=== PATIENT | female | born 1950 | race Caucasian/White ===

== ENCOUNTER 2023-10-27 16:54 | Inpatient (IN) ==
[2023-10-27] MEDS ORDERED: cefTRIAXone 1 gm/50 mL D5W 1 GM/50 ML BAG IV ONE (17:03)
[2023-10-27] MEDS ORDERED: NS 0.9% IV ONE (17:05)
[2023-10-27 17:37] LABS: ABS Lymphocytes 0.8 10^3/uL (1.0-4.8); ABS Monocytes 0.9 10^3/uL (0.0-0.9); ABS Neutrophils 11.1 10^3/uL (1.5-7.6); ABS Nucleated RBC 0.02 10^3/ul; Eosinophil % 0.4 %; Hematocrit 36.6 % (35-45); Hemoglobin 12.3 g/dL (11.5-14.3); Lymphocyte % 6.2 %; Mean Corpuscular Hgb Conc 33.6 g/dL (31-36); Mean Corpuscular Volume 86.3 fL (80-97); Mean Platelet Volume 7.5 fL (7.5-11.2); Nucleated Red Blood Cells % 0.1 %/100WBC (0.0-0.8); Platelet Count 180 10^3/uL (150-450); Red Blood Count 4.24 10^6/uL (3.63-4.92); Red Cell Distribution Width 14.5 % (12-17); White Blood Count 12.9 10^3/uL (3.8-11.8)
[2023-10-27 17:56] LABS: Albumin 3.7 g/dL (3.2-5.2); Albumin/Globulin Ratio 1.1 (1-3); C Reactive Protein 253.73 mg/L (<8.01); Calcium 8.4 mg/dL (8.6-10.3); Creatinine, Serum 1.16 mg/dL (0.51-0.95); Globulin 3.5 g/dL (2-4); Potassium 3.3 mmol/L (3.5-5.0); Total Bilirubin 1.4 mg/dL (0.2-1.0); Total Protein 7.2 g/dL (6.4-8.9); eGFR CKD-EPI 49.8 (>60)
[2023-10-27] MEDS ORDERED: Piperacillin/Tazobac 3.375 BAG 3.375 GM/100 ML BAG IV ONE (18:53)
[2023-10-27] MEDS ORDERED: Lactated Ringers 1000 ml BAG 1,000 ML IV SCH (20:46)
[2023-10-27] MEDS ORDERED: Senna TAB 8.6 mg TAB PO PRN (20:48)
[2023-10-27] MEDS ORDERED: Zosyn per Pharmacy NOTE FOLLOW UP SCH (21:00)
[2023-10-27] MEDS ORDERED: Potassium Chlor 20 meq TAB.ER PO ONE (21:05)
[2023-10-27 21:37] LABS: Magnesium 1.8 mg/dL (1.9-2.7)
[2023-10-27] MEDS ORDERED: Magnesium Sulfate IV 1GM/100ML 1 GM/100 ML BAG IV ONE (21:38)
[2023-10-27] MEDS ORDERED: Dextrose 50% Syringe 50 ml 25 GM/50 ML SYRINGE IV PUSH PRN (23:41)
[2023-10-28] MEDS ORDERED: ZOSYN 3.375 GM Q8H per EXTENDED INFUSION IV SCH
[2023-10-28] MEDS: Enoxaparin 40 MG/0.4 ML SYR SUBCUT SCH ×2 (00:23→20:52)
[2023-10-28] MEDS: HYDROcodone/ACETAMIN 5/325 mg TAB PO PRN ×3 (01:29→20:54)
[2023-10-28] MEDS: ZOSYN 3.375 GM Q8H per EXTENDED INFUSION IV SCH ×2 (01:40→08:12)
[2023-10-28 07:10] LABS: Anion Gap 7 mmol/L (2-16); Blood Urea Nitrogen 16 mg/dL (6-24); C Reactive Protein 263.05 mg/L (<8.01); CO2 Carbon Dioxide 21 mmol/L (22-32); Calcium 7.9 mg/dL (8.6-10.3); Chloride 99 mmol/L (101-111); Creatinine, Serum 0.96 mg/dL (0.51-0.95); Glucose 157 mg/dL (70-100); Magnesium 2.1 mg/dL (1.9-2.7); Sodium 127 mmol/L (135-145); eGFR CKD-EPI 62.5 (>60)
[2023-10-28] MEDS: Amphetamine MIXED SALT 10mgTAB PO SCH ×2 (08:18→14:07)
[2023-10-28] MEDS: Fluticasone NASAL SPRAY 50MCG 16 gm SPRAY BTL INTRANASAL SCH (11:26)
[2023-10-28 18:27] LABS: Urine Appearance Cloudy; Urine Bilirubin Negative (Negative); Urine Blood 1+ (Negative); Urine Color Yellow; Urine Glucose Negative (Negative); Urine Ketones Negative (Negative); Urine Nitrite Negative (Negative); Urine Protein Negative (Negative); Urine Specific Gravity 1.009 (1.002-1.030); Urine Urobilinogen Positive (Negative)
[2023-10-28 18:58] LABS: Urine Bacteria 1+ (Absent); Urine Red Blood Cell 2+(6-10/hpf) (Absent); Urine Squamous Epithelial Cell Present (Absent); Urine White Blood Cell 2+(11-20/hpf) (Absent)
[2023-10-28] MEDS: cefTRIAXone 2 gm/50 mL D5W 2 GM/50 ML BAG IV SCH (20:48)
[2023-10-29] MEDS: HYDROcodone/ACETAMIN 5/325 mg TAB PO PRN ×3 (00:34→21:00)
[2023-10-29 07:03] LABS: ABS Eosinophils 0.2 10^3/uL (0.0-0.5); ABS Lymphocytes 0.8 10^3/uL (1.0-4.8); ABS Monocytes 0.5 10^3/uL (0.0-0.9); ABS Nucleated RBC 0.02 10^3/ul; Eosinophil % 3.8 %; Hematocrit 34.2 % (35-45); Hemoglobin 11.7 g/dL (11.5-14.3); Lymphocyte % 14.8 %; Mean Corpuscular Hemoglobin 31.2 pg (27-33); Mean Corpuscular Hgb Conc 34.2 g/dL (31-36); Mean Corpuscular Volume 91.1 fL (80-97); Mean Platelet Volume 7.6 fL (7.5-11.2); Nucleated Red Blood Cells % 0.3 %/100WBC (0.0-0.8); Platelet Count 183 10^3/uL (150-450); Red Blood Count 3.75 10^6/uL (3.63-4.92); Red Cell Distribution Width 14.7 % (12-17); White Blood Count 5.5 10^3/uL (3.8-11.8)
[2023-10-29 07:05] LABS: Calcium 8.7 mg/dL (8.6-10.3); Creatinine, Serum 0.9 mg/dL (0.51-0.95); Potassium 3.7 mmol/L (3.5-5.0); eGFR CKD-EPI 67.5 (>60)
[2023-10-29] MEDS: Amphetamine MIXED SALT 10mgTAB PO SCH ×2 (09:12→13:44)
[2023-10-29] MEDS: Fluticasone NASAL SPRAY 50MCG 16 gm SPRAY BTL INTRANASAL SCH (09:13)
[2023-10-29] MEDS: cefTRIAXone 2 gm/50 mL D5W 2 GM/50 ML BAG IV SCH (21:04)
[2023-10-29] MEDS: Enoxaparin 40 MG/0.4 ML SYR SUBCUT SCH (21:08)
[2023-10-30] MEDS: HYDROcodone/ACETAMIN 5/325 mg TAB PO PRN ×2 (00:48→05:22)
[2023-10-30 07:00] LABS: ABS Eosinophils 0.2 10^3/uL (0.0-0.5); ABS Monocytes 0.5 10^3/uL (0.0-0.9); ABS Neutrophils 3.4 10^3/uL (1.5-7.6); ABS Nucleated RBC 0.01 10^3/ul; Eosinophil % 3.7 %; Hematocrit 34.1 % (35-45); Hemoglobin 11.6 g/dL (11.5-14.3); Lymphocyte % 18.8 %; Mean Corpuscular Hemoglobin 29.1 pg (27-33); Mean Corpuscular Hgb Conc 33.9 g/dL (31-36); Mean Corpuscular Volume 85.7 fL (80-97); Mean Platelet Volume 7.6 fL (7.5-11.2); Nucleated Red Blood Cells % 0.2 %/100WBC (0.0-0.8); Platelet Count 224 10^3/uL (150-450); Red Blood Count 3.98 10^6/uL (3.63-4.92); Red Cell Distribution Width 14.9 % (12-17); White Blood Count 5.1 10^3/uL (3.8-11.8)
[2023-10-30 07:24] LABS: Calcium 8.2 mg/dL (8.6-10.3); Creatinine, Serum 0.81 mg/dL (0.51-0.95); Potassium 3.3 mmol/L (3.5-5.0); eGFR CKD-EPI 76.6 (>60)
[2023-10-30] MEDS ORDERED: Potassium Chlor 20 meq TAB.ER PO ONE (07:31)
[2023-10-30] MEDS: Amphetamine MIXED SALT 10mgTAB PO SCH (08:30)
[2023-10-30] MEDS: Fluticasone NASAL SPRAY 50MCG 16 gm SPRAY BTL INTRANASAL SCH (08:31)
[2023-10-30 10:20] VITALS: BP 143/73
== END 2023-10-30 11:45 | disposition home or self-care (01) | DRG 178 ==
LOC: EDHOLD 16:54 → ED 16:54 → SUATTDRO 20:37 → MED 21:37
PROVIDERS: ADMIT Internal Medicine; ATTEND Internal Medicine

== ENCOUNTER 2024-04-24 23:35 | Inpatient (IN) ==
[2024-04-25 00:11] LABS: ABS Basophils 0.1 10^3/uL (0.0-0.1); ABS Lymphocytes 0.9 10^3/uL (1.0-4.8); ABS Monocytes 0.8 10^3/uL (0.0-0.9); Eosinophil % 0.1 %; Hematocrit 36.5 % (35-45); Hemoglobin 11.7 g/dL (11.5-14.3); Lymphocyte % 5.2 %; Mean Corpuscular Hemoglobin 27.8 pg (27-33); Mean Corpuscular Hgb Conc 32.2 g/dL (31-36); Mean Corpuscular Volume 86.4 fL (80-97); Platelet Count 214 10^3/uL (150-450); Red Blood Count 4.22 10^6/uL (3.63-4.92); Red Cell Distribution Width 15.9 % (12-17); White Blood Count 16.8 10^3/uL (3.8-11.8)
[2024-04-25 00:21] LABS: Urine Appearance Turbid; Urine Bacteria 1+ /HPF (Absent); Urine Bilirubin Negative (Negative); Urine Blood 2+ (Negative); Urine Color Light-Yellow; Urine Glucose 4+ (>=1000 mg/dL) (Negative); Urine Ketones Negative (Negative); Urine Nitrite 2+ (Negative); Urine Protein 1+ (>=30 mg/dL) (Negative); Urine Red Blood Cell 1+(3-5/hpf) /HPF (0-Trace); Urine Specific Gravity 1.023 (1.002-1.030); Urine Squamous Epithelial Cell Present /HPF (Absent); Urine Urobilinogen Negative (Negative); Urine White Blood Cell 3+(>20/hpf) /HPF (0-Trace); Urine pH 5.5 (5.0-8.0)
[2024-04-25 00:26] LABS: Venous Bicarbonate HCO3 22.5 mmol/L (24-28)
[2024-04-25] MEDS: Acetaminophen IV 1 GM/100ML 1,000 MG/100 ML BAG IV ONE (00:27)
[2024-04-25] MEDS: NS 0.9% 1000 ml BAG 2,000 ML IV ONE (00:28)
[2024-04-25] MEDS: Piperacillin/Tazobac 3.375 BAG 3.375 GM/100 ML BAG IV ONE (00:31)
[2024-04-25 00:36] LABS: High Sens Troponin Baseline 11 pg/mL (<15)
[2024-04-25 00:43] LABS: INR 1.31 (0.83-1.13)
[2024-04-25 00:50] LABS: ALT 20 U/L (7-52); AST 20 U/L (13-39); Albumin 3.8 g/dL (3.2-5.2); Albumin/Globulin Ratio 1.2 (1-3); Alcohol, S < 13 mg/dL (<13); Alkaline Phosphatase 119 U/L (35-149); Anion Gap 12 mmol/L (2-16); Blood Urea Nitrogen 32 mg/dL (6-24); C Reactive Protein 361.11 mg/L (<8.01); CO2 Carbon Dioxide 22 mmol/L (22-32); Chloride 99 mmol/L (101-111); Creatinine, Serum 2.16 mg/dL (0.51-0.95); Globulin 3.2 g/dL (2-4); Glucose 263 mg/dL (70-100); Potassium 4.2 mmol/L (3.5-5.0); Sodium 133 mmol/L (135-145); Total Bilirubin 1.1 mg/dL (0.2-1.0); eGFR CKD-EPI 23.6 (>60)
[2024-04-25] MEDS ORDERED: Vancomycin 2,000 MG in NS 0.9% 250 ml 250 ML IVPB SCH (01:00)
[2024-04-25 01:06] LABS: TSH Ultra Thyroid Stim Horm 3.15 mcIU/mL (0.34-5.60)
[2024-04-25 01:38] LABS: High Sensitivity Troponin 1 Hr 10 pg/mL (<15)
[2024-04-25] MEDS: Vancomycin 2,000 MG in NS 0.9% 500 ml BAG 500 ML IVPB ONE (02:30)
[2024-04-25] MEDS ORDERED: Dextrose 50% Syringe 50 ml 25 GM/50 ML SYRINGE IV PUSH PRN (02:49)
[2024-04-25 04:27] LABS: ABS Lymphocytes 0.9 10^3/uL (1.0-4.8); ABS Monocytes 0.4 10^3/uL (0.0-0.9); ABS Neutrophils 11.3 10^3/uL (1.5-7.6); Eosinophil % 0.1 %; Hematocrit 32.5 % (35-45); Hemoglobin 10.6 g/dL (11.5-14.3); Lymphocyte % 6.8 %; Mean Corpuscular Hgb Conc 32.6 g/dL (31-36); Mean Corpuscular Volume 85.8 fL (80-97); Platelet Count 184 10^3/uL (150-450); Red Blood Count 3.79 10^6/uL (3.63-4.92); Red Cell Distribution Width 15.7 % (12-17); White Blood Count 12.6 10^3/uL (3.8-11.8)
[2024-04-25] MEDS: Lactated Ringers 1000 ml BAG 1,000 ML IV SCH (04:58)
[2024-04-25 05:26] LABS: Anion Gap 10 mmol/L (2-16); Blood Urea Nitrogen 32 mg/dL (6-24); CO2 Carbon Dioxide 21 mmol/L (22-32); Chloride 104 mmol/L (101-111); Creatinine, Serum 1.98 mg/dL (0.51-0.95); Glucose 226 mg/dL (70-100); Sodium 135 mmol/L (135-145); eGFR CKD-EPI 26.2 (>60)
[2024-04-25] MEDS ORDERED: Acetaminophen IV 1 GM/100ML 1,000 MG/100 ML BAG IV ONE (06:53)
[2024-04-25] MEDS: Acetaminophen IV 1 GM/100ML 1,000 MG/100 ML BAG IV PRN (06:54)
[2024-04-25 07:38] LABS: Potassium Redraw 4.3 mmol/L (3.5-5.0)
[2024-04-25] MEDS: cefTRIAXone 1 gm/50 mL D5W 1 GM/50 ML BAG IV SCH (10:02)
[2024-04-25] MEDS: Heparin 5000 UNITS/ML 1 mL VIAL SUBCUT SCH (10:02)
[2024-04-25] MEDS: HYDROcodone/ACETAMIN 5/325 mg TAB PO PRN (11:39)
[2024-04-25] MEDS ORDERED: Albuterol HFA INHALER 8 gm MDI INH PRN (18:37)
[2024-04-25] MEDS ORDERED: HYDROcodone/ACETAMIN 5/325 mg TAB PO PRN (18:42)
[2024-04-25] MEDS: Fluticasone NASAL SPRAY 50MCG 16 gm SPRAY BTL INTRANASAL SCH (19:59)
[2024-04-26 05:53] LABS: ABS Lymphocytes 0.6 10^3/uL (1.0-4.8); ABS Monocytes 0.5 10^3/uL (0.0-0.9); ABS Neutrophils 9.5 10^3/uL (1.5-7.6); Eosinophil % 0.3 %; Hematocrit 30.4 % (35-45); Hemoglobin 10.3 g/dL (11.5-14.3); Mean Corpuscular Hemoglobin 28.8 pg (27-33); Mean Corpuscular Hgb Conc 33.8 g/dL (31-36); Mean Corpuscular Volume 85.1 fL (80-97); Mean Platelet Volume 7.9 fL (7.5-11.2); Platelet Count 153 10^3/uL (150-450); Red Blood Count 3.57 10^6/uL (3.63-4.92); Red Cell Distribution Width 15.6 % (12-17); White Blood Count 10.6 10^3/uL (3.8-11.8)
[2024-04-26 06:04] LABS: INR 1.2 (0.83-1.13)
[2024-04-26 06:31] LABS: Calcium 8.1 mg/dL (8.6-10.3); Creatinine, Serum 1.68 mg/dL (0.51-0.95); Magnesium 1.9 mg/dL (1.9-2.7); Potassium 3.8 mmol/L (3.5-5.0); eGFR CKD-EPI 31.9 (>60)
[2024-04-26] MEDS ORDERED: Iohexol 180 (CONTRAST) 10 ML SDV IV ONE ×3 (07:06→08:09)
[2024-04-26] MEDS ORDERED: Propofol 10 MG/ML 20 ML BTL ONE (07:07)
[2024-04-26] MEDS ORDERED: Lidocaine 2% PF 5 ML VIAL ONE (07:07)
[2024-04-26] MEDS ORDERED: fentaNYL 100 mcg/2 ml 50 MCG/ML VIAL ONE (07:08)
[2024-04-26] MEDS ORDERED: Midazolam 2 mg/2 ml VIAL 1 mg/ml 2 ml VIAL (2 mg) ONE (07:08)
[2024-04-26] MEDS ORDERED: fentaNYL 100 mcg/2 ml 50 MCG/ML VIAL IV PRN ×2 (07:39→08:17)
[2024-04-26] MEDS ORDERED: Naloxone 0.4 mg VIAL 0.4 mg/ml 1 ml VIAL IV PRN ×2 (07:39→08:17)
[2024-04-26] MEDS ORDERED: KETAMINE HCL 10 MG/ML 20 ml VIAL (200 MG) ONE (07:49)
[2024-04-26] MEDS ORDERED: Dexamethasone IV 4 MG/ML VIAL 1 ml VIAL ONE (08:20)
[2024-04-26] MEDS ORDERED: Ondansetron 4 mg VIAL 2 MG/ML 2 ml VIAL ONE (08:20)
[2024-04-26] MEDS ORDERED: Metoprolol Tartrate 5 mg VIAL 5 ml VIAL (1 mg/ml) ONE (08:25)
[2024-04-26] MEDS: HYDROcodone/Acetamin 10/325 TAB (NF) PO PRN (09:30)
[2024-04-26] MEDS: Metoprolol Tartrate 5 mg VIAL 5 ml VIAL (1 mg/ml) IV SCH (09:49)
[2024-04-26] MEDS ORDERED: HYDROcodone/Acetamin 10/325 TAB (NF) PO PRN (11:40)
[2024-04-26] MEDS: Magnesium Sulfate IV 1GM/100ML 1 GM/100 ML BAG IV ONE (12:19)
[2024-04-26] MEDS: Lidocaine 4% GEL 10 GM TUBE TOPICAL ONE (12:21)
[2024-04-26] MEDS: HYDROcodone/Acetamin 10/325 TAB (NF) PO SCH ×2 (13:28→16:09)
[2024-04-26] MEDS ORDERED: HYDROcodone/Acetamin 10/325 TAB (NF) PO SCH (17:00)
[2024-04-26] MEDS: Metoprolol Tartrate 5 mg VIAL 5 ml VIAL (1 mg/ml) IV PRN (18:22)
[2024-04-27 05:46] LABS: ABS Lymphocytes 0.8 10^3/uL (1.0-4.8); ABS Monocytes 0.4 10^3/uL (0.0-0.9); ABS Neutrophils 8.9 10^3/uL (1.5-7.6); Hematocrit 29.3 % (35-45); Hemoglobin 9.9 g/dL (11.5-14.3); Lymphocyte % 7.5 %; Mean Corpuscular Hemoglobin 28.9 pg (27-33); Mean Corpuscular Hgb Conc 33.8 g/dL (31-36); Mean Corpuscular Volume 85.6 fL (80-97); Mean Platelet Volume 8.4 fL (7.5-11.2); Platelet Count 169 10^3/uL (150-450); Red Blood Count 3.42 10^6/uL (3.63-4.92); White Blood Count 10.2 10^3/uL (3.8-11.8)
[2024-04-27 05:57] LABS: INR 1.06 (0.83-1.13)
[2024-04-27 06:03] LABS: Calcium 8.5 mg/dL (8.6-10.3); Creatinine, Serum 1.61 mg/dL (0.51-0.95); Magnesium 2.4 mg/dL (1.9-2.7); Potassium 4.2 mmol/L (3.5-5.0); eGFR CKD-EPI 33.6 (>60)
[2024-04-27] MEDS ORDERED: Sulfur Hexaflouride MICROSPHR 25 MG VIAL ONE (10:26)
[2024-04-27] MEDS: Sulfur Hexaflouride MICROSPHR 25 MG VIAL IV ONE (10:28)
[2024-04-27] MEDS: fentaNYL 100 mcg/2 ml 50 MCG/ML VIAL ONE ×2 (13:46→23:50)
[2024-04-28 07:30] LABS: ABS Monocytes 0.4 10^3/uL (0.0-0.9); Eosinophil % 0.7 %; Hematocrit 33.1 % (35-45); Hemoglobin 10.8 g/dL (11.5-14.3); Lymphocyte % 15.5 %; Mean Corpuscular Hemoglobin 30.5 pg (27-33); Mean Corpuscular Hgb Conc 32.6 g/dL (31-36); Mean Corpuscular Volume 93.8 fL (80-97); Mean Platelet Volume 8.2 fL (7.5-11.2); Platelet Count 176 10^3/uL (150-450); Red Blood Count 3.53 10^6/uL (3.63-4.92); Red Cell Distribution Width 17.2 % (12-17); White Blood Count 6.5 10^3/uL (3.8-11.8)
[2024-04-28 09:02] LABS: Potassium 4.6 mmol/L (3.5-5.0)
[2024-04-28 09:04] LABS: Calcium 8.2 mg/dL (8.6-10.3); Creatinine, Serum 1.42 mg/dL (0.51-0.95); eGFR CKD-EPI 39.1 (>60)
[2024-04-28 09:05] LABS: Magnesium 2.2 mg/dL (1.9-2.7)
[2024-04-28 14:20] VITALS: BP 129/72
== END 2024-04-28 17:20 | disposition home or self-care (01) | DRG 872 ==
LOC: EDHOLD 23:35 → ED 23:35 → SUATTDRO 04-25 02:03 → OBSVTOIN 04-25 02:03 → MED 04-25 13:58
PROVIDERS: ADMIT Internal Medicine; ATTEND Hospitalist

== ENCOUNTER 2024-08-13 20:28 | Observation (INO) ==
[2024-08-13] MEDS: Lactated Ringers SEPSIS* BAG 1,850 ML IV ONE (21:23)
[2024-08-13] MEDS: Acetaminophen IV 1 GM/100ML 1,000 MG/100 ML BAG IV ONE (21:29)
[2024-08-13 21:34] LABS: ABS Lymphocytes 0.6 10^3/uL (1.0-4.8); ABS Monocytes 0.3 10^3/uL (0.0-0.9); ABS Neutrophils 8.3 10^3/uL (1.5-7.6); ABS Nucleated RBC 0.01 10^3/ul; Eosinophil % 0.3 %; Hematocrit 34.9 % (35-45); Hemoglobin 11.2 g/dL (11.5-14.3); Lymphocyte % 6.3 %; Mean Corpuscular Hemoglobin 28.7 pg (27-33); Mean Corpuscular Hgb Conc 32.2 g/dL (31-36); Mean Corpuscular Volume 89.2 fL (80-97); Mean Platelet Volume 7.7 fL (7.5-11.2); Nucleated Red Blood Cells % 0.2 %/100WBC (0.0-0.8); Platelet Count 267 10^3/uL (150-450); Red Blood Count 3.91 10^6/uL (3.63-4.92); Red Cell Distribution Width 17.1 % (12-17); White Blood Count 9.3 10^3/uL (3.8-11.8)
[2024-08-13 21:49] LABS: Albumin 4.4 g/dL (3.2-5.2); Albumin/Globulin Ratio 1.4 (1-3); C Reactive Protein 107.12 mg/L (<8.01); Calcium 9.2 mg/dL (8.6-10.3); Creatinine, Serum 1.3 mg/dL (0.51-0.95); Globulin 3.1 g/dL (2-4); Potassium 4.3 mmol/L (3.5-5.0); Total Bilirubin 0.9 mg/dL (0.2-1.0); Total Protein 7.5 g/dL (6.4-8.9); eGFR CKD-EPI 43.2 (>60)
[2024-08-13] MEDS: Piperacillin/Tazobac 3.375 BAG 3.375 GM/100 ML BAG IV ONE (22:24)
[2024-08-13 22:43] LABS: Activated Partial Thrombo Time 30.2 seconds (26.0-38.0); INR 1.22 (0.85-1.14)
[2024-08-13 22:53] LABS: High Sensitivity Troponin 1 Hr 5 pg/mL (<15)
[2024-08-14] MEDS ORDERED: Dextrose 50% Syringe 50 ml 25 GM/50 ML SYRINGE IV PUSH PRN (04:59)
[2024-08-14] MEDS: HYDROcodone/ACETAMIN 5/325 mg TAB PO PRN (05:31)
[2024-08-14] MEDS: cefTRIAXone 1 gm/50 mL D5W 1 GM/50 ML BAG IV SCH (06:18)
[2024-08-14 06:40] LABS: ABS Monocytes 0.5 10^3/uL (0.0-0.9); ABS Neutrophils 6.5 10^3/uL (1.5-7.6); Eosinophil % 0.5 %; Hematocrit 29.4 % (35-45); Hemoglobin 9.9 g/dL (11.5-14.3); Lymphocyte % 12.7 %; Mean Corpuscular Hemoglobin 28.8 pg (27-33); Mean Corpuscular Hgb Conc 33.7 g/dL (31-36); Mean Corpuscular Volume 85.4 fL (80-97); Mean Platelet Volume 7.5 fL (7.5-11.2); Platelet Count 236 10^3/uL (150-450); Red Blood Count 3.44 10^6/uL (3.63-4.92); Red Cell Distribution Width 16.4 % (12-17); White Blood Count 8.1 10^3/uL (3.8-11.8)
[2024-08-14 07:02] LABS: Calcium 8.7 mg/dL (8.6-10.3); Creatinine, Serum 1.24 mg/dL (0.51-0.95); eGFR CKD-EPI 45.7 (>60)
[2024-08-14] MEDS: Fluticasone NASAL SPRAY 50MCG 16 gm SPRAY BTL BOTH NARES SCH (14:38)
[2024-08-14 15:15] LABS: Urine Appearance Extra Turbid; Urine Color Red
[2024-08-14 15:27] LABS: Urine Specific Gravity 1.029 (1.002-1.030)
[2024-08-14 15:30] LABS: Urine Bacteria Absent /HPF (Absent); Urine Red Blood Cell 3+(>10/hpf) /HPF (0-Trace); Urine White Blood Cell 3+(>20/hpf) /HPF (0-Trace)
[2024-08-15 09:15] VITALS: BP 122/77
[2024-08-15] MEDS: Polyethylene Glycol 3350 17 GM PACKET PO SCH (10:46)
== END 2024-08-15 13:53 | disposition home or self-care (01) ==
LOC: EDHOLD 20:28 → ED 20:28 → SSU 08-14 02:32
PROVIDERS: ADMIT Internal Medicine; ATTEND Internal Medicine